=== PATIENT | female | born 1935 | race Caucasian/White ===

== ENCOUNTER 2016-09-21 12:11 | Day surgery (SDC) | payer MEDICARE ==
[2016-09-16 11:24] LABS: HEMATOCRIT 41.6 % (36.0-48.0); HEMOGLOBIN 13.3 g/dL (12.0-16.0)
[2016-09-16 11:32] LABS: BUN (BLOOD UREA NITROGEN) 29 MG/DL (6-23); CHLORIDE, SERUM 109 MMOL/L (96-112); CO2 (CARBON DIOXIDE) 28 MMOL/L (24-34); GFR AFRICAN AMERICAN 41 ML/MIN (>=60); GFR NON AFRICAN AMERICAN 35 ML/MIN (>=60); GLUCOSE, SERUM 110 MG/DL (60-99); POTASSIUM, SERUM 5.1 MMOL/L (3.5-5.3); SODIUM, SERUM 142 MMOL/L (135-148)
--- NOTE | ~2016-09-21 | OP ---
Record Of Operation [facility] [address] [place]. [address] NAME: SUSNHINE ZHOU : 37 STATUS : [facility]#: [id number] AGE: 81 ADM/REG DATE : 09/21/16 MR#: [id number] REPORT SERV DATE: 09/28/16 DICTATED BY: Steve SEQUEIRA DATE: 09/27/16 REPORT STATUS : Draft TRANSCRIBED BY: MELONY DATE: 09/27/16 DATE OF PROCEDURE: 09/16/2016 PREOPERATIVE DIAGNOSES: 1. 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 2. Defect of the nasal tip - distal nasal dorsum secondary to Mohs micrographic surgical excision of basal cell carcinoma. POSTOPERATIVE DIAGNOSES: 1. 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 2. Defect of the nasal tip - distal nasal dorsum secondary to Mohs micrographic surgical excision of basal cell carcinoma. PROCEDURES: 1. Surgical excisional preparation of the nasal defect. 2. Harvesting of the skin graft from nasal dorsum. 3. Rotation flap closure of nasal full-thickness skin graft donor site. 4. Reconstruction of the nasal defect with full-thickness skin graft. FINDINGS: A 1.5 cm wide x 1.9 cm tall defect of the central distal nasal dorsum and tip. INDICATIONS: This 81-year-old female underwent Mohs micrographic surgical excision of a biopsy-proven basal cell carcinoma. She now presents for reconstruction. At a separate consultation, prior to the Mohs surgery, the pros and cons, alternatives, benefits, risks, limitations, and complications of reconstruction of this anticipated defect were discussed at length. She has a small nose and this is a large defect. No guarantees expressed. She understands and wished to proceed. Proper consent obtained. DESCRIPTION OF PROCEDURE: She was taken into the operating room and given general oral endotracheal anesthesia in the supine position. The dressing on her nose was removed revealing a large nasal defect. The nose and face and upper neck were prepped with Hibiclens and saline followed by isopropyl alcohol. None of these solutions got in her eyes. None of the alcohol got in the open wound. Sterile drapes were applied. The defect measured as stated above in the findings. I felt that the best reconstruction would be a skin graft harvested from the nasal dorsum and the reconstruction of the skin graft donor site would then decrease the size of the Mohs defect of the distal nasal dorsum and nasal tip sufficiently enough to be able to be grafted from this skin graft harvested from the nasal dorsum. The midline was marked with a marking pen. A long triangular excision was marked out from the lateral aspect of the defect bilaterally. This extended up to the root of the nose at a level of the intercanthal area. The nose was injected with 1% Xylocaine with 1:100,000 epinephrine and 0.5% Marcaine with 1:200,000 epinephrine. Five minutes elapsed for vasoconstriction. The #15 blade was used to incise the skin according to the triangular markings. The initial incision into the skin bilaterally was only through skin and not down through muscle. Record Of Operation [facility] [id number] [facility] [place]. [address] NAME: SUNSHINE ZHOU : 37 STATUS : [facility] PAT#: [id number] AGE: 81 ADM/REG DATE : 09/21/16 MR#: [id number] REPORT SERV DATE: 09/28/16 DICTATED BY: Steve SEQUEIRA DATE: 09/27/16 REPORT STATUS : Draft TRANSCRIBED BY: MELONY DATE: 09/27/16 Long Term up the incision, the incision went deep down to the perichondrium and periosteum of the nasal skeleton up to the root of the nose and apex of the excision. It was designed like this to preserve soft tissue in the midportion of the nasal dorsum to prevent depression of the nasal dorsum in this area when the rotation flaps (to be developed) were secured for donor site closure. This would give this area more subcutaneous bulk by leaving the muscle, but superiorly the muscle was taken so that the overall effect would hopefully be a straighter nasal dorsum without a supra tip-distal nasal dorsum depression. The skin was then removed for approximately 12 mm and then the dissection went deep taking skin and muscle up to the apex of the triangle of the nasal dorsum. This excised graft was then placed in saline. Next, bilaterally, the lateral incisions were deepened down to the level of the perichondrium and periosteum of the nasal skeleton. Then, bilateral rotation flaps were then elevated with a Weplay needle tip cautery for flap elevation and hemostasis. This was done bilaterally. These flaps were rotated and secured in the midline with the lower portion of the flaps resting on the preserved soft tissue/muscle of the mid nasal dorsum. These flaps were secured with 4-0, 5-0, and 6-0 Vicryl. This reduced the size of the Mohs defect by approximately 5 mm. The harvested skin graft was then appropriately defatted and incrementally cut to fit and sutured incrementally into the defect. Prior to suturing it in, the beveled edges of the defect were surgically excisionally prepared with #15C blade and forceps and scissors where the edges were irregular, thus creating vertical incisions to accept the graft properly. The graft was sutured in place with 6-0 interrupted Prolene. The incision at the skin level of the donor site was treated with Dermabond. The skin graft area was treated with antibiotic ointment, Xeroform, and a sterile piece of sponge from a sterile scrub brush and oversewn with multiple passes of a 6-0 Prolene suture creating a firm, but gentle pressure on the graft. Hemostasis had been excellent. There was enough space between the sutures to allow blood to come out if necessary. The donor site as well as the graft site were then treated with Mastisol and multiple layers of paper tape. She was then awakened, extubated, and taken to the recovery room in good condition having tolerated the procedure well. Home going instructions were to keep the dressing dry and intact and recheck in the office in 13 days. She is to avoid laughing, talking, smiling, and chewing. She is to keep her nose still. Prescriptions have been given for antibiotics, pain medicine, and antinausea medicine. KARISSA/IRLANDAL Steve Sequeira M.D. / [id number] CC: Que Peguero CHRISTOPHER
[~2016-09-21 12:11] MED LIST: ALEVE220 MG PO; AMIT25 PO; ASAB PO; GLUCPH PO; K-TABS10 MEQ PO; L20 PO; ZANTAC 150 PO; ZESTRIL20 MG PO
== END 2016-09-21 19:28 | disposition home or self-care (01) ==
LOC: SDC 12:11
PROVIDERS: Specialist
PROC: 0HR1X73 Replacement of Face Skin with Autologous Tissue Substitute, Full Thickness, External Approach (ICD-10-PCS; principal; 2016-09-21 13:15)
DX: M95.0 Acquired deformity of nose (principal); I10 Essential (primary) hypertension; E11.9 Type 2 diabetes mellitus without complications; Z79.82 Long term (current) use of aspirin; Z79.899 Other long term (current) drug therapy; Z90.710 Acquired absence of both cervix and uterus; Z83.3 Family history of diabetes mellitus; Z82.49 Family history of ischemic heart disease and other diseases of the circulatory system; Z86.73 Personal history of transient ischemic attack (TIA), and cerebral infarction without residual deficits; Z88.2 Allergy status to sulfonamides; Z98.890 Other specified postprocedural states
CPT/HCPCS: 80048; 82962; 85014; 85018; 93005; A9270-GY; J0690; J2370; J2405; J2710; J3010